=== PATIENT | male | born 1945 | race Caucasian/White ===

== ENCOUNTER 2016-04-22 17:55 | Inpatient (IN) | payer MEDICAID, MEDICARE ==
--- NOTE | 2016-04-22 18:12 | ED Physician Chart ---
Chief Complaint/HPI - Patient Information Date Seen:: 04/22/16 Time Seen:: 17:57 Chief Complaint:: Choking episode History of Present Illness:: Brought in by ambulance from nursing facility because pt reportedly had a choking episode earlier. Pt now breathes well and has been back to his baseline functional status. Pt has h/o dementia with Alzheimer's disease and is essentially nonverbal; thus, H & P are limited. Info is primarily from review of transfer documents. Allergies:: Allergies Allergy/AdvReac Type Severity Reaction Status Date / Time MDX No Known Allergies - Nka Allergy Verified 04/01/15 09:59 [No Known Allergies - Nka] Vitals:: see Nurse Note. Historian:: Medical Records (from tranferring facility.) Family MD/PCP:: Dr. Rutherford. LMP:: N/A Review:: Nurse's Note Reviewed, Transfer documents Reviewed Review of Systems - Review of Systems General/Constitutional: Other (Pt does not cooperate for ROS.) Past Medical History - Past Medical History Past Medical History: Dyslipidemia, PUD/GERD, Arthritis, Dementia (with Alzheimer's Disease.), Other (Parkinson's Disease.) Family History: Other (Pt is unable to cooperate to provide info on FHx.) Social History: Care Facility, Other (Pt is unable to cooperate to provide info on SHx.) Surgical History: other (Pt is unable to cooperate to provide info on Surgical Hx.) Psychiatricy History: Depression, Dementia Medication: Reviewed Family Medical History - Family Member Mother History Unknown: Yes Physical Exam - Physical Examination General/Constitutional: Awake, Well-developed, well-nourished, Alert, No distress, Non-toxic appearing Other Gen/Cons comments:: Alert and responsive to voice and tactile stimuli. Pt is essentially nonverbal. He breathes comfortably and is active. Head: Atraumatic Eyes: Lids, conjuctiva normal, PERRL, EOMI Skin: No ecchymosis, No lymphadenopathy ENMT: External ears, nose nl, Nasal exam nl, Oropharynx nl, Tonsils nl Other ENMT comments:: No foreign body detected in oral exam. Mucous membrane is slightly dry. Neck: Nontender, Full ROM w/o pain, No JVD, No nuchal rigidity, No bruit, No mass, No stridor Respiratory: Nl effort/Exclusion, Clear to Auscultation, No Wheeze/Rhonchi/Rales Cardio Vascular: RRR, No murmur, gallop, rubs, NL S1 S2 GI: No tenderness/rebounding/guarding, No organomegaly, No hernia, Normal BS's, Nondistended, No mass/bruits, No McBurney tenderness Other GI comments:: Abdomen is soft. Extremities: No edema Other Neuro/Psych comments:: Alert and responsive to voice and tactile stimuli. Spontaneous movements noticed in all 4 extremities. Pt does not cooperate for full neurological exam. Labs/Radiology/EKG Results - Lab Results Results: Laboratory Tests 04/22/16 04/22/16 04/22/16 18:20 18:20 18:20 WBC 7.9 RBC 4.53 Hgb 14.1 Hct 41.6 MCV 91.8 MCH 31.1 H MCHC Differential 33.9 RDW 14.6 Plt Count 215 MPV 8.5 Neutrophils % 31.2 L Lymphocytes % 54.2 H Monocytes % 9.2 Eosinophils % 4.0 Basophils % 1.4 PT 10.5 INR 1.06 PTT (Actin FS) 25.9 L Sodium 128 L Potassium 3.7 Chloride 99 Carbon Dioxide 22.5 Anion Gap 10.2 BUN 16 Creatinine 0.7 Est GFR ( Amer) > 60.0 Est GFR (Non-Af Amer) > 60.0 BUN/Creatinine Ratio 22.9 Glucose 89 Calcium 9.5 Total Bilirubin 0.4 AST 15 ALT 7 Alkaline Phosphatase 59 Total Protein 7.3 Albumin 3.8 L Globulin 3.5 Albumin/Globulin Ratio 1.1 Valproic Acid 04/22/16 18:20 WBC RBC Hgb Hct MCV MCH MCHC Differential RDW Plt Count MPV Neutrophils % Lymphocytes % Monocytes % Eosinophils % Basophils % PT INR PTT (Actin FS) Sodium Potassium Chloride Carbon Dioxide Anion Gap BUN Creatinine Est GFR ( Amer) Est GFR (Non-Af Amer) BUN/Creatinine Ratio Glucose Calcium Total Bilirubin AST ALT Alkaline Phosphatase Total Protein Albumin Globulin Albumin/Globulin Ratio Valproic Acid 82.9 - Radiology Results Results: PCXR: Based on my interpretation, poor inspiration; otherwise, NAD. Official report is pending. ED Septic Shock - . Is Septic Shock (SBP<90, OR Lactate>4 mmol\L) present?: No Reassessment (Disposition) - Reassessment Reassessment:: 1929 Pt has been repeatedly evaluated. Pt remains stable. No new findings. Lab results just became available. Dr. Rutherford has been contacted. [phone] Rutherford repeatedly without success. Pertinent H & P, lab findings, and CXR were reviewed with physician customer operations associate Dr. Lopez. Pt is to be admitted to [facility] under his care. Reassessment Condition:: Improved - Diagnosis Diagnosis:: Transient choking episode by hx, stable and currently asymptomatic. Dementia, stable. Mild dehydration with mild hyponatremia, stable. - Patient Disposition Admitted to:: Med/Surg Admitting Medical Physician:: Tommie Lopez Time:: 21:25 Condition at Disposition:: Stable, Improved
[2016-04-22 18:38] LABS: % BASOPHILS 1.4 % (0.0-2.0); % LYMPHOCYTES 54.2 % (20.0-50.0); % MONOCYTES 9.2 % (2.0-10.0); % NEUTROPHILS 31.2 % (40.0-80.0); HEMATOCRIT 41.6 % (39.0-49.0); HEMOGLOBIN 14.1 gm/dL (12.6-17.4); MEAN CELL VOLUME 91.8 fl (80-99); MEAN CORPUSCULAR HEMOGLOBIN 31.1 pg (27.0-31.0); MEAN CORPUSCULAR HGB CONC 33.9 pg (28.0-36.0); MEAN PLATELET VOLUME 8.5 fl; NEUTROPHILE ABSOLUTE 2.5 Th/cmm (1.8-8.0); PLATELET COUNT 215 Th/cmm (150-400); RED BLOOD COUNT 4.53 Mil/cmm (3.80-5.80); RED CELL DISTRIBUTION WIDTH 14.6 % (11.5-20.0); WHITE BLOOD COUNT 7.9 Th/cmm (4.8-10.8)
[2016-04-22 18:42] LABS: INR 1.06 (0.5-1.4); PROTHROMBIN TIME (TEST) 10.5 SECONDS (9.5-11.5)
[2016-04-22 18:46] LABS: ALB/GLOB RATIO 1.1 (1.0-1.8); ALKALINE PHOSPHATASE 59 U/L (34-104); ANION GAP 10.2 (7.0-16.0); BILIRUBIN,TOTAL 0.4 mg/dL (0.3-1.0); BUN - UREA NITROGEN 16 mg/dL (7-25); BUN/CREATININE RATIO 22.9; CALCIUM SERUM 9.5 mg/dL (8.6-10.3); CARBON DIOXIDE 22.5 mEq/L (21.0-31.0); CHLORIDE 99 mEq/L (98-107); CREATININE - SERUM 0.7 mg/dL (0.7-1.3); GLUCOSE 89 mg/dL (70-105); POTASSIUM SERUM 3.7 mEq/L (3.5-5.1); SGOT 15 U/L (13-39); SGPT/ALT 7 U/L (7-52); SODIUM SERUM 128 mEq/L (136-145)
[2016-04-22] MEDS ORDERED: Sodium Chloride 0.9% 1,000 ML IV ONE (19:33)
[2016-04-22] MEDS: D5-0.9%NS 1,000 ML IV SCH (23:14)
[2016-04-23 04:56] VITALS: BP 159/68
[2016-04-23 07:23] LABS: % BASOPHILS 0.4 % (0.0-2.0); % EOSINOPHILS 1.4 % (0.0-5.0); % LYMPHOCYTES 36.4 % (20.0-50.0); % MONOCYTES 8.9 % (2.0-10.0); % NEUTROPHILS 52.9 % (40.0-80.0); HEMATOCRIT 39.9 % (39.0-49.0); HEMOGLOBIN 13.9 gm/dL (12.6-17.4); MEAN CELL VOLUME 91.8 fl (80-99); MEAN CORPUSCULAR HGB CONC 34.8 pg (28.0-36.0); MEAN PLATELET VOLUME 9.1 fl; NEUTROPHILE ABSOLUTE 3.8 Th/cmm (1.8-8.0); PLATELET COUNT 195 Th/cmm (150-400); RED BLOOD COUNT 4.35 Mil/cmm (3.80-5.80); RED CELL DISTRIBUTION WIDTH 14.3 % (11.5-20.0); WHITE BLOOD COUNT 7.1 Th/cmm (4.8-10.8)
[2016-04-23 07:30] LABS: PROTHROMBIN TIME (TEST) 9.9 SECONDS (9.5-11.5)
[2016-04-23 07:33] LABS: ALB/GLOB RATIO 1.2 (1.0-1.8); ALKALINE PHOSPHATASE 50 U/L (34-104); BILIRUBIN,TOTAL 0.4 mg/dL (0.3-1.0); BUN - UREA NITROGEN 15 mg/dL (7-25); BUN/CREATININE RATIO 18.8; CALCIUM SERUM 9.2 mg/dL (8.6-10.3); CARBON DIOXIDE 27.1 mEq/L (21.0-31.0); CHLORIDE 102 mEq/L (98-107); CREATININE - SERUM 0.8 mg/dL (0.7-1.3); GLUCOSE 113 mg/dL (70-105); POTASSIUM SERUM 4.1 mEq/L (3.5-5.1); SGOT 13 U/L (13-39); SGPT/ALT 6 U/L (7-52); SODIUM SERUM 131 mEq/L (136-145)
[2016-04-23] MEDS ORDERED: Influenza Vaccine 0.5 mL Syr IM ONE (10:00)
[2016-04-23] MEDS ORDERED: STERILE WATER FOR IRRIGATION IR ONE (10:00)
[2016-04-23] MEDS ORDERED: Midazolam 1mg/ml 2 ml vial IV ONE (10:00)
[2016-04-23] MEDS ORDERED: Sodium Chloride 0.9% 1,000 ML IV ONE (10:00)
--- NOTE | 2016-04-23 12:14 | Diagnostic Imaging Report ---
Portable chest x-ray HISTORY: Shortness of breath There is a very poor inspiration. The heart appears to be somewhat enlarged. Allowing for the poor inspiration, no acute focal pulmonary processes are seen. Slight elevation of left hemidiaphragm. IMPRESSION: 1. Allowing for poor inspiration, no definite acute focal pulmonary processes
--- NOTE | 2016-04-23 17:03 | Operative Report ---
INPATIENT GASTROINTESTINAL PROCEDURE PROCEDURE: EGD with biopsy. REFERRING PHYSICIAN: Dr. Tommie Lopez. REASON FOR PROCEDURE: Choking dysphagia. CONSENT: Risks, benefits, alternatives, nature, indication, possible outcomes were discussed. Mentioned bleeding, infection, perforation, , disability, cardiopulmonary distress and arrest, missed lesion and cancers, need for surgery, missed lesions. The patient's brother expressed understanding and provided informed consent. PREOPERATIVE DIAGNOSIS: Choking dysphagia. POSTOPERATIVE DIAGNOSIS: Fundal polyp. MEDICATIONS: Versed 1 mg. DESCRIPTION OF PROCEDURE: The patient was placed on left side. Upper gastroscope advanced from mouth to second portion of duodenum. Scope pulled back in the stomach. Retroflexion view of fundus, cardia, lesser curvature, fundal polyp, status post biopsy. Scope was slowly withdrawn through the esophagus and removed. COMPLICATIONS: None. FINDINGS: 1. GE junction at 40 cm with a widely patent esophagus. No luminal lesions seen. 2. Fundal polyp, status post biopsy. 3. Normal duodenum. RECOMMENDATIONS: 1. Follow up on biopsy. 2. Continue supportive care. 3. Family and patient does not want PEG tube. Thank you for allowing me to participate. Please call me, if any questions. JOB# [id number]
--- NOTE | 2016-04-24 00:46 | Consultation ---
REFERRING PHYSICIAN: Dr. Tommie Lopez. REASON FOR CONSULTATION: Anorexia, dysphagia. HISTORY OF PRESENT ILLNESS: This is a 70-year-old male who was brought into the hospital because he was apparently choking, having dysphagia. He has underlying history of dementia, Alzheimer's disease. He is nonverbal. We were asked to see the patient for consideration of endoscopy and PEG. Again, the patient is a poor historian. PAST MEDICAL HISTORY: Dementia, hyperlipidemia, peptic ulcer disease, arthritis. PAST SURGICAL HISTORY: None to the abdomen____ recently. FAMILY HISTORY: Noncontributory. SOCIAL HISTORY: Resident of [facility] facility. ALLERGIES: None. CURRENT MEDICATIONS: Protonix, IV fluids, Tylenol. REVIEW OF SYSTEMS: Unobtainable. PHYSICAL EXAMINATION: VITAL SIGNS: Temperature is 98.7, breathing 18, pulse of 79, blood pressure is 159/68, satting 96%. GENERAL: In no apparent distress. EYES: Anicteric, normal conjunctivae. HENT: Normocephalic, atraumatic. Moist mucous membranes. NECK: Soft, supple. CHEST: Clear, normal effort. CARDIOVASCULAR: Regular rate and rhythm. ABDOMEN: Soft, nontender, nondistended. SKIN: Warm, dry. EXTREMITIES: Reveal no cyanosis. LABORATORY DATA: Showed a white count 7.1, hemoglobin 13.9, platelets of 195. INR is 1. LFTs were within normal limits. IMPRESSION: A 70-year-old male with anorexia, dysphagia. The patient had an episode of choking, this could be from his underlying dysphagia, but on the other hand, could be from a stricture or dysmotility. PLAN: 1. Consider EGD versus esophagogram. 2. PEG was considered, but because the patient has an advanced ____ does not want any feeding tubes, this will not be pursued. 3. Consider alternatives for feedings such as NG tube versus TPN. 4. Continue supportive care. Thank you for allowing me to participate. Please call me if you have any questions. JOB# [id number]
--- NOTE | 2016-04-24 00:50 | History & Physical ---
REASON FOR ADMISSION: Choking in this patient with severe dementia, most likely secondary to advanced dementia. HISTORY OF PRESENT ILLNESS: The patient is a 70-year-old gentleman with Alzheimer dementia, resident of half-way facility at [facility]. The patient was brought to the Emergency Room as he was choking and having hard time swallowing. The patient is currently on MULTIPLE MEDS SINEMET, ARICEPT, DEPAKOT , and otherwise unable to talk at all. The patient is unable to offer any other history. All history obtained through the review of medical record. The patient is currently on pureed diet with nectar-thick liquid. The patient also receiving the Sinemet 25/100 for Parkinson disease and Aricept 10 mg once a day for Alzheimer disease and valproic acid for agitation, valproic acid level was 82 in the Emergency Room. The patient was on Prozac 10 mg once a day, Mylanta on as-needed basis. SOCIAL HISTORY: Unable to obtain. ADVANCED DIRECTIVE: The patient has advanced directive of no CPR and no NG tube or G-tube or artificial feeding. REVIEW OF SYSTEMS: Workup in the Emergency Room revealed no aspiration on the chest x-ray. The chest x-ray was unremarkable. PHYSICAL EXAMINATION: VITAL SIGNS: Temperature 98.7, pulse 79, respiratory rate 18, blood pressure 134/78 to 159/68, height 1.83 meter, weight 74.8 kg. BMI 22.4. GENERAL: On examination, the patient appears to have ATROPHY of the muscle in temporal area and intercostal muscles on the hands. No acute distress noted. HEENT: Eyes open, but unable to communicate or follow any commands. LUNGS: Decreased air entry. CVS: S1 and S2 normal. ABDOMEN: Soft and nontender. No hepatosplenomegaly. Bowel sounds are active in all four quadrants. EXTREMITIES: No leg edema noted. Dorsalis pedis palpable. CENTRAL NERVOUS SYSTEM: As mentioned earlier, the patient is awake, making noises, but no verbal words communication. Not follow any orders and only responds to painful stimuli. LABORATORY TESTS: WBC 7.1, hemoglobin 13.9, MCV 91, platelet of 195,000, neutrophil 52. Protime 9.9, PTT 26. Sodium 131, potassium 4.1, chloride 102, bicarb 27, BUN 15, creatinine 0.8. Glucose of 113, calcium 9.2. Liver panel is unremarkable. Albumin 3.6. TSH 1.1. Valproic acid level 82.9. Chest x-ray unremarkable, poor inspiration, but no infiltrate. ASSESSMENT AND PLAN: 1. Dysphagia. The patient underwent esophagogastroduodenoscopy, which revealed gastroesophageal junction at 40 cm, patent esophagus, FUNDUS POLYP which was biopsied. The patient has advanced directive of no CPR and no NG tube, G-tube, or artificial feeding. We respect that. Let the family know to make decision regarding further alternative feeding plan including swallowing eval and continue swallowing EVAL AND consider hospice care. We will inform Dr. Rutherford, and he will make the arrangement for the hospice care and go from there. 2. Alzheimer dementia. 3. Parkinson disease. 4. Psychosis. 5. Acute debility, bedbound status. 6. Hyponatremia. 7. Hypoalbuminemia with albumin of 3.8 to 3.6. 8. Rule out any infectious etiology and keep monitoring the urinalysis, urine culture and CBCs, aspiration precaution, IV Protonix, hold p.o. medicine. Current condition is guarded. Overall prognosis is very poor. CASE D/W DR. DAVID AND PATIENTS BROTHER DEREK WHO MAKE DECISION FOR PATIENT AND WISH TO RESPECT DNR AND NO USP ARTIFICIAL NUTRITION VIA TUBES. [facility]# [id number] RIKY
[2016-04-24 06:57] LABS: URINE BILIRUBIN NEGATIVE (NEGATIVE); URINE BLOOD TRACE (NEGATIVE); URINE COLOR YELLOW; URINE GLUCOSE (UA) NEGATIVE (NEGATIVE); URINE KETONE NEGATIVE (NEGATIVE); URINE PH 7.5; URINE PROTEIN NEGATIVE (NEGATIVE)
[2016-04-24 07:07] LABS: URINE RBC 0-2 /hpf (0-5)
[2016-04-24 07:08] LABS: URINE BACTERIA MODERATE /hpf (NONE SEEN); URINE EPITHELIAL CELLS FEW /lpf (FEW)
[2016-04-24 07:23] LABS: % EOSINOPHILS 0.6 % (0.0-5.0); % LYMPHOCYTES 28.3 % (20.0-50.0); % MONOCYTES 11.6 % (2.0-10.0); % NEUTROPHILS 58.5 % (40.0-80.0); HEMATOCRIT 39.2 % (39.0-49.0); HEMOGLOBIN 13.3 gm/dL (12.6-17.4); MEAN CELL VOLUME 91.8 fl (80-99); MEAN CORPUSCULAR HEMOGLOBIN 31.2 pg (27.0-31.0); MEAN PLATELET VOLUME 8.6 fl; NEUTROPHILE ABSOLUTE 4.3 Th/cmm (1.8-8.0); PLATELET COUNT 172 Th/cmm (150-400); RED BLOOD COUNT 4.27 Mil/cmm (3.80-5.80); RED CELL DISTRIBUTION WIDTH 14.5 % (11.5-20.0); WHITE BLOOD COUNT 7.3 Th/cmm (4.8-10.8)
[2016-04-24 09:27] LABS: ALB/GLOB RATIO 1.1 (1.0-1.8); ALKALINE PHOSPHATASE 48 U/L (34-104); ANION GAP 9.3 (7.0-16.0); BILIRUBIN,TOTAL 0.6 mg/dL (0.3-1.0); BUN - UREA NITROGEN 11 mg/dL (7-25); BUN/CREATININE RATIO 15.7; CARBON DIOXIDE 25.7 mEq/L (21.0-31.0); CHLORIDE 102 mEq/L (98-107); CREATININE - SERUM 0.7 mg/dL (0.7-1.3); GLUCOSE 98 mg/dL (70-105); SGOT 15 U/L (13-39); SGPT/ALT 13 U/L (7-52); SODIUM SERUM 133 mEq/L (136-145)
--- NOTE | 2016-04-24 14:26 | Pathology Report ---
[id number] Collection date: 04/23/16 Surgeon: Dr. Cayla Stark Specimen Description: Fundus polyp. Gross Description: Received in formalin is a single fragment of llamas soft tissue measuring 0.2 cm in greatest dimension. Totally submitted in one cassette. Microscopic Description: The histologic sections show gastric mucosa with mild chronic inflammation consisting of lymphocytes and plasma cells. Several cystically dilated gastric glands are identified consistent with benign hyperplastic polyp. A Giemsa stain shows no evidence for Helicobacter pylori. Diagnosis: 1. Benign hyperplastic gastric polyp, fundus biopsy. 2. Mild chronic gastritis. 3. The Giemsa stain is negative for Helicobacter pylori. [facility]# [id number] [facility]
[2016-04-24] MEDS: cefTRIAXone 1 GM in Sodium Chloride 0.9% 50 ML IV SCH (15:05)
[2016-04-24] MEDS: D5-0.9%NS 1,000 ML IV SCH (18:04)
--- NOTE | 2016-04-24 18:42 | Discharge Summary ---
The patient was discharged to [facility] under Dr. Rutherford. FINAL DIAGNOSES: 1. Choking secondary to dysphagia, failed swallowing eval. The patient has advanced directive of no CPR and no artificial feeding through the tube. The case discussed with the patient's brother, who is the decision maker for the patient as the patient unable to give any history and sent back to the [facility] and no NG or G tube. The patient will continue on IV fluid and ST eval at the [facility]. They will hold all p.o. medication at present time and go from there. 2. Urinary tract infection, was started empirically Rocephin and continue to [facility] and follow the urine culture. 4. Alzheimer's dementia. Currently, the patient is off of Aricept. 5. Parkinson's disease, currently off of the Sinemet. 6. Psychosis. The patient is on valproic acid, currently off of it. On admission, valproic acid level was 82. 7. Acute debility with bedbound status and advised directive of no CPR, supportive care at present time. 8. Hyponatremia, which improved with IV fluid. 9. Hypoalbuminemia, which remained steady, as albumin of 3.8 to 3.6. 10. Status post EGD, no obstruction found, small fundal polyp was removed and sent for biopsy. He will follow up on it and meanwhile give patient a Pepcid 20 mg IV b.i.d. Current condition is very poor overall prognosis. It is a terminal. The patient will go back to [facility] and primary care physician may consider for the hospice care. JOB# [id number] [facility]
[2016-04-25] MEDS: D5-0.9%NS 1,000 ML IV SCH (06:40)
[2016-04-25] MEDS: cefTRIAXone 1 GM in Sodium Chloride 0.9% 50 ML IV SCH (13:29)
== END 2016-04-25 17:00 | DRG 463 ==
LOC: ER 17:55 → MSI 21:35
PROVIDERS: ADMIT Internal Medicine; ATTEND Internal Medicine
PROC: 0DB68ZX Excision of Stomach, Via Natural or Artificial Opening Endoscopic, Diagnostic (ICD-10-PCS; principal; 2016-04-23)
DX: N39.0 Urinary tract infection, site not specified (principal); G20 Parkinson's disease; E88.09 Other disorders of plasma-protein metabolism, not elsewhere classified; R13.10 Dysphagia, unspecified; E87.1 Hypo-osmolality and hyponatremia; E86.0 Dehydration; G30.9 Alzheimer's disease, unspecified; F02.80 Dementia in other diseases classified elsewhere, unspecified severity, without behavioral disturbance, psychotic disturbance, mood disturbance, and anxiety; F29 Unspecified psychosis not due to a substance or known physiological condition; E78.5 Hyperlipidemia, unspecified; K27.9 Peptic ulcer, site unspecified, unspecified as acute or chronic, without hemorrhage or perforation; M19.90 Unspecified osteoarthritis, unspecified site; K31.7 Polyp of stomach and duodenum; R63.0 Anorexia; K21.9 Gastro-esophageal reflux disease without esophagitis; F32.9 Major depressive disorder, single episode, unspecified; Z74.01 Bed confinement status
CPT/HCPCS: 36415-UA; 71010-TC; 80053-TC; 80164-TC; 81001-TC; 84443-TC; 85025-TC; 85610-TC; 87086-90; 88305-90; C9113; J0696; J2250; J3490; J7030; J7042; X3401; Z7610